=== PATIENT | male | born 1965 | race American Indian/Alaskan Native ===

== ENCOUNTER 2019-10-17 22:51 | Emergency (ER) | payer SELFPAY ==
--- NOTE | 2019-10-17 23:19 | Emergency Department Report ---
ED Neuro Deficit HPI - General Chief Complaint: Neuro Symptoms/Deficit Stated Complaint: POSSIBLE STROKE Time Seen by Provider: 10/17/19 22:56 Source: patient, EMS Mode of arrival: Stretcher Limitations: Physical Limitation - History of Present Illness Initial Comments: [facility] Date of Service: 10/17/2019 22:53:32 Impression: intracerebral hemorrhage appears hypertensive and location Comments: the patient has a hypertensive bleed in the left basal ganglia. Blood pressure goal less than 140/90. He is being started on a nicardipine drip. He doesn't take any known blood thinners or have any known coagulopathy although coags are still pending. He'll need to be transferred to a facility that has neurosurgery capacity for close monitoring and neurology evaluation. Metrics: Last Known Well: 10/17/2019 21:50:00 [facility] Notification Time: 10/17/2019 22:53:01 Arrival Time: 10/17/2019 22:25:10 Stamp Time: 10/17/2019 22:53:32 Time First Login Attempt: 10/17/2019 23:01:00 Video Start Time: 10/17/2019 23:01:00 Symptoms: right sided weakness slurred speech NIHSS Start Assessment Time: 10/17/2019 23:09:06 Patient is not a candidate for tPA. Patient was not deemed candidate for tPA thrombolytics because of Current or Previous ICH. Video End Time: 10/17/2019 23:13:21 CT head was reviewed and results were: the patient has a left basal ganglia intracerebral hemorrhage Clinical Presentation is not Suggestive of Large Vessel Occlusive Disease, Patient is not a Candidate for Thrombectomy Radiologist was not called back for review of advanced imaging because na ED Physician notified of diagnostic impression and management plan on 10/17/2019 23:13:25 Our recommendations are outlined below. Recommendations: Activate Stroke Protocol Admission/Order Set Stroke/Telemetry Floor Neuro Checks Bedside Swallow Eval DVT Prophylaxis IV Fluids, Normal Saline Head of Bed Below 30 Degrees Euglycemia and Avoid Hyperthermia (PRN Acetaminophen) Hold Antithrombotics for Now Recommended Scan: MRI Head Carotid Dopplers Echocardiogram - Transthoracic Echocardiogram Lipid Panel to Be Obtained, if Not Done in the Last Three Months Therapies: Physical Therapy, Occupational Therapy, Speech Therapy Assessment When Applicable Dysphaghia Screen: Swallow Evaluation, Bedside NPO Until Swallow Evaluation Disposition: Sign Out Sign Out: Discussed with Emergency Department Provider History of Present Illness: Patient is a 54 year old Male. Patient was brought by EMS for symptoms of right sided weakness slurred speech HE was speaking to his girlfriend developed sudden PATRICK and right sided weakness at 21:50. BP 193/121. Has a hx of HTN no other health issues. CT head shows a moderate left BG ICH CT head was reviewed. Examination: 1A: Level of Consciousness - Arouses to minor stimulation + 1 1B: Ask Month and Age - Both Questions Right + 0 1C: Blink Eyes & Squeeze Hands - Performs Both Tasks + 0 2: Test Horizontal Extraocular Movements - Normal + 0 3: Test Visual Cardoso - No Visual Loss + 0 4: Test Facial Palsy (Use Grimace if Obtunded) - Unilateral Complete paralysis (upper/lower face) + 3 5A: Test Left Arm Motor Drift - No Drift for 10 Seconds + 0 5B: Test Right Arm Motor Drift - No Movement + 4 6A: Test Left Leg Motor Drift - No Drift for 5 Seconds + 0 6B: Test Right Leg Motor Drift - No Effort Against [place] + 3 7: Test Limb Ataxia (FNF/Heel-Sanchez) - No Ataxia + 0 8: Test Sensation - Mild-Moderate Loss: Less Sharp/More Dull + 1 9: Test Language/Aphasia - Normal; No aphasia + 0 10: Test Dysarthria - Severe Dysarthria: Unintelligble Slurring or Out of Proportion to Aphasia + 2 11: Test Extinction/Inattention - No abnormality + 0 NIHSS Score: 14 Patient was informed the Neurology Consult would happen via TeleHealth consult by way of interactive audio and video telecommunications and consented to receiving care in this manner. Due to the immediate potential for life-threatening deterioration due to underlying acute neurologic illness, I spent 35 minutes providing critical care. This time includes time for face to face visit via telemedicine, review of medical records, imaging studies and discussion of findings with providers, the patient and/or family. Dr Nubia Combs [facility] ED Review of Systems ROS: Stated complaint: POSSIBLE STROKE Other details as noted in HPI ED Past Medical Hx - Past Medical History Previous Medical History?: Yes Hx Hypertension: Yes - Surgical History Past Surgical History?: No - Social History Smoking Status: Never Smoker ED Neuro Physical Exam - General Limitations: Physical Limitation Suspected Stroke: Yes - NIHSS Assessment Interval: Baseline 1a. Level of Consciousness: arousable/minor stimuli 1b. LOC Questions: answers both correctly 1c. LOC Commands: performs tasks correctly 2. Best Gaze: normal 3. Visual: no visual loss 4. Facial Palsy: unilateral complete paralysis 5b. Motor Arm Right: no movement 5a. Motor Arm Left: no drift 6a. Motor Leg Left: no drift 6b. Motor Leg Right: no gravity effort 7. Limb Ataxia: absent 8. Sensory: mild/moderate sensory loss 9. Best Language: no aphasia 10. Dysarthria: severe dysarthria 11. Extinction/Inattention: no abnormality Total Score: 14 Stroke Severity: Moderate Stroke ED Course Vital Signs 10/17/19 10/17/19 22:59 23:04 Temperature 99.0 F Pulse Rate 92 H Respiratory 20 Rate Blood Pressure 193/121 [Right] O2 Sat by Pulse 95 Oximetry - Lab Data Lab Results 10/17/19 Range/Units 23:16 POC Glucose 96 (70-105) Critical care attestation.: If time is entered above; I have spent that time in minutes in the direct care of this critically ill patient, excluding procedure time. ED Disposition Clinical Impression: ICH (intracerebral hemorrhage) Qualifiers: Intracerebral hemorrhage etiology: nontraumatic Cerebral hemorrhage location: cerebral hemisphere, subcortical portion Laterality: left Qualified Code(s): I61.0 - Nontraumatic intracerebral hemorrhage in hemisphere, subcortical Disposition: DC-09 OP ADMIT IP TO THIS HOSP Is pt being admited?: Yes Condition: Stable Referrals: PRIMARY CARE, [Primary Care Provider] - 3-5 Days
--- NOTE | 2019-10-17 23:26 | Cat Scan Report ---
CT HEAD WITHOUT CONTRAST INDICATION: MAIN: Stroke symptoms.STROKE ALERT. FRANSISCO BATISTA. AMS. SLURRED SPEECH. FACIAL DROOP. BLE ED TECHNIQUE: All CT scans at this location are performed using CT dose reduction for ALARA by means of automated exposure control. COMPARISON: None available. FINDINGS: BRAIN: In the posterior aspect of the left putamen extending superiorly into the centrum semiovale ar ea, an intraparenchymal acute hematoma is seen measuring 3.6 x 1.7 x 3.3 cm. Slight surrounding edema is seen. Only local mass effect is noted. No extension into the ventricular system or extra-axial sp aces is seen. No hydrocephalus is noted. Hypodensity is seen mildly at this level in the left parieta l lobe extending into the cortex and I believe may represent developing cortical infarction in this z one. No other hemorrhage is seen. Mild microvascular type changes are noted in the white matter. ORBITS: Normal as visualized. SOFT TISSUES OF HEAD: Normal. CALVARIUM: Normal. VISUALIZED PARANASAL SINUSES AND MASTOID AIR CELLS: Right maxillary sinus is almost completely opacif ied but no air-fluid level is seen. Other sinuses are clear. ADDITIONAL FINDINGS: None. IMPRESSION: Left putaminal acute hematoma with mild mass effect. Probable developing area of cortical infarction in the left posterior parietal lobe. CRITICAL RESULT: Time of Discovery: 2209 Time of Communication: 2215 Licensed Practitioner Receiving Report: Dr. Duarte Read Back Performed: not pertinent Signer Name: Tony Romero MD Signed: 10/17/2019 11:22 PM Workstation Name: [id number]
--- NOTE | 2019-10-17 23:29 | Emergency Department Report ---
ED General Adult HPI - General Chief complaint: Neuro Symptoms/Deficit Stated complaint: POSSIBLE STROKE Time Seen by Provider: 10/17/19 22:56 Source: patient, EMS Mode of arrival: Stretcher Limitations: Physical Limitation - History of Present Illness Initial comments: Patient presents to the emergency department with a chief complaint of acute onset right-sided weakness and inability to speak. This occurred 1 hour prior to ED arrival. Patient has a history of hypertension denies any anticoagulation medications. Per EMS patient's blood pressure was 210/120 upon arrival. -: Sudden Consistency: constant Improves with: none Worsens with: none Associated Symptoms: denies other symptoms Treatments Prior to Arrival: none - Related Data Allergies Allergy/AdvReac Type Severity Reaction Status Date / Time No Known Allergies Allergy Unverified 10/17/19 23:26 ED Review of Systems ROS: Stated complaint: POSSIBLE STROKE Other details as noted in HPI Comment: Unobtainable due to pts medical conditions ED Past Medical Hx - Past Medical History Previous Medical History?: Yes Hx Hypertension: Yes - Surgical History Past Surgical History?: No - Social History Smoking Status: Never Smoker ED Physical Exam - General Limitations: Physical Limitation General appearance: alert - Head Head exam: Present: atraumatic, normocephalic - Eye Eye exam: Present: EOMI - ENT ENT exam: Present: mucous membranes dry, other (Patient has a right facial droop and aphasia) - Neck Neck exam: Present: normal inspection - Respiratory Respiratory exam: Present: normal lung sounds bilaterally, respiratory distress. Absent: wheezes, rales - Cardiovascular Cardiovascular Exam: Present: regular rate, normal rhythm - GI/Abdominal GI/Abdominal exam: Present: soft, normal bowel sounds. Absent: distended, tenderness - Neurological Exam Neurological exam: Present: alert - Psychiatric Psychiatric exam: Present: other (Unable to assess due to patient's condition) - Skin Skin exam: Present: warm, dry, intact, normal color. Absent: rash ED Course Vital Signs 10/17/19 10/17/19 10/17/19 22:59 23:04 23:13 Temperature 99.0 F Pulse Rate 92 H 82 Respiratory 20 16 Rate Blood Pressure 193/121 Blood Pressure 193/121 [Right] O2 Sat by Pulse 96 Oximetry 10/17/19 10/17/19 23:16 23:30 Temperature Pulse Rate 74 Respiratory 16 14 Rate Blood Pressure 186/121 149/99 Blood Pressure [Right] O2 Sat by Pulse 94 95 Oximetry ED Medical Decision Making - Lab Data Result diagrams: 10/17/19 23:15 Lab Results 10/17/19 10/17/19 Range/Units 23:15 23:16 WBC 4.4 L (4.5-11.0) K/mm3 RBC 4.67 (3.65-5.03) M/mm3 Hgb 13.5 (11.8-15.2) gm/dl Hct 40.7 (35.5-45.6) % MCV 87 (84-94) fl MCH 29 (28-32) pg MCHC 33 (32-34) % RDW 14.1 (13.2-15.2) % Plt Count 165 (140-440) K/mm3 Lymph % (Auto) 37.7 H (13.4-35.0) % [place] % (Auto) 10.1 H (0.0-7.3) % Eos % (Auto) 1.0 (0.0-4.3) % Baso % (Auto) 0.6 (0.0-1.8) % Lymph # 1.7 (1.2-5.4) K/mm3 [place] # 0.4 (0.0-0.8) K/mm3 Eos # 0.0 (0.0-0.4) K/mm3 Baso # 0.0 (0.0-0.1) K/mm3 Seg Neutrophils % 50.6 (40.0-70.0) % Seg Neutrophils # 2.2 (1.8-7.7) K/mm3 POC Glucose 96 (70-105) - EKG Data -: EKG Interpreted by Hi EKG shows normal: sinus rhythm Rate: normal - Radiology Data Radiology results: report reviewed - Medical Decision Making Patient's blood pressure on arrival was 210/120 the tele-neurologist gave verbal orders for the patient received 20 mg labetalol which I was unaware of prior to the patient receiving it. Patient's blood pressure decreased to 149/100 after given labetalol. Once again this was a verbal order given by the tele- neurologist which I was unaware of until after the patient received the medication Patient started on a Cardene drip Discussed results and plan of care with patient and his girlfriend Telephone transfer line contacted Patient is accepted at 12:37 AM Accepting physician's are Mickey Patient and girlfriend updated on disposition On reexamination of the patient at 11:48 PM he is maintaining his airway still without any issue. Critical Care Time: Yes Critical care time in (mins) excluding proc time.: 45 Critical care attestation.: If time is entered above; I have spent that time in minutes in the direct care of this critically ill patient, excluding procedure time. ED Disposition Clinical Impression: ICH (intracerebral hemorrhage) Qualifiers: Intracerebral hemorrhage etiology: nontraumatic Cerebral hemorrhage location: cerebral hemisphere, subcortical portion Laterality: left Qualified Code(s): I61.0 - Nontraumatic intracerebral hemorrhage in hemisphere, subcortical Disposition: DC/[place]-70 ANOTHER TYPE HLTHCARE Is pt being admited?: No Does the pt Need Aspirin: No Condition: Fair Referrals: PRIMARY CARE,MD [Primary Care Provider] - 3-5 Days - Assessment Assessment Interval: Baseline - Level of Consciousness 1a. Level of Consciousness: alert/keenly responsive - LOC Questions 1b. LOC Questions: answers no questions correctly - LOC Command 1c. LOC Commands: performs no tasks correctly - Best Gaze 2. Best Gaze: normal - Visual 3. Visual: no visual loss - Facial Palsy 4. Facial Palsy: unilateral complete paralysis - Motor Arm 5a. Motor Arm Left: no drift 5b. Motor Arm Right: some gravity effort - Motor Leg 6a. Motor Leg Left: no drift 6b. Motor Leg Right: some gravity effort - Limb Ataxia 7. Limb Ataxia: present 1 limb - Sensory 8. Sensory: normal - Best Language 9. Best Language: severe aphasia - Dysarthria 10. Dysarthria: severe dysarthria - Extinction and Inattention 11. Extinction/Inattention: no abnormality - Scoring Total Score: 16 Stroke Severity: Moderate to Severe Stroke
[2019-10-17 23:35] LABS: Basophils % (Auto) 0.6 % (0.0-1.8); Hematocrit 40.7 % (35.5-45.6); Hemoglobin 13.5 gm/dl (11.8-15.2); Lymphocytes # (Auto) 1.7 K/mm3 (1.2-5.4); Lymphocytes % (Auto) 37.7 % (13.4-35.0); Mean Corpuscular HGB Conc 33 % (32-34); Mean Corpuscular Volume 87 fl (84-94); Monocytes # (Auto) 0.4 K/mm3 (0.0-0.8); Monocytes % (Auto) 10.1 % (0.0-7.3); Platelet Count 165 K/mm3 (140-440); Red Blood Count 4.67 M/mm3 (3.65-5.03); Red Cell Distribution Width 14.1 % (13.2-15.2)
[2019-10-17] MEDS ORDERED: niCARdipine 50 MG in SODIUM CHLORIDE 0.9% 250ML 230 ML IV SCH (23:45)
[2019-10-17 23:50] LABS: Creatine Kinase MB 2.4 ng/mL (0.0-4.0)
[2019-10-17 23:52] LABS: Alanine Aminotransferase 27 units/L (7-56); Albumin 4.4 g/dL (3.9-5); BUN/Creatinine Ratio 11; Blood Urea Nitrogen 16 mg/dL (9-20); Calcium 9.5 mg/dL (8.4-10.2); Hemolysis Index 11
[2019-10-17 23:58] LABS: INR 1.11 (0.87-1.13)
[2019-10-17 23:59] LABS: Partial Thromboplastin Time 26.5 Sec. (24.2-36.6)
[2019-10-18 00:28] VITALS: BP 167/126
== END 2019-10-18 00:40 | disposition other institution (70) ==
LOC: ED 22:51
DX: I61.9 Nontraumatic intracerebral hemorrhage, unspecified (principal); I10 Essential (primary) hypertension
CPT/HCPCS: 36415; 70450; 80053; 82550; 82553; 82962; 84484; 85025; 85610; 85670; 85730; 93005; 93010; 96365; 96375; 99291; J7050